=== PATIENT | male | born 1990 | race Hispanic/Latino ===

== ENCOUNTER 2025-06-18 13:55 | Inpatient (IN) | payer SELFPAY ==
[2025-06-18] MEDS ORDERED: levETIRAcetam 500 MG (5 mL) VIAL ONE (14:43)
[2025-06-18] MEDS ORDERED: hydrALAZINE 20 MG/ML VIAL SLOW IVP PRN (16:19)
[2025-06-18] MEDS ORDERED: Ondansetron PF 4 MG/2 ML Vial IVP PRN (16:44)
[2025-06-18 18:40] LABS: Magnesium 1.7 mg/dL (1.6-2.6)
[2025-06-18] MEDS: Acetaminophen 325 MG TAB PO SCH (19:37)
[2025-06-18] MEDS: Senokot 8.6 MG TAB PO SCH (19:38)
[2025-06-18 20:25] VITALS: BMI 31.1
[2025-06-18] MEDS: levETIRAcetam 500 MG (5 mL) VIAL SLOW IVP SCH (20:33)
[2025-06-18] MEDS: Famotidine/PF 20 mg/2ml Vial SLOW IVP SCH (20:33)
[2025-06-18] MEDS: TETANUS, DIPHTHERIA TOX,ADULT (TDVAX) 0.5 ML VIAL IM ONE (20:40)
[2025-06-19 03:39] LABS: #Basophils 0.03 10x3/uL (0.0-0.2); #Eosinophils 0.03 10x3/uL (0.0-0.7); #Monocytes 0.85 10x3/uL (0.11-0.59); #Neutrophils 7.96 10x3/uL (1.40-6.50); %Basophils 0.3 % (0.0-1.0); %Eosinophils 0.3 % (0.0-10.0); %Lymphocytes 14.3 % (21.0-51.0); %Monocytes 8.2 % (0.0-10.0); %Neutrophils 76.5 % (42.0-75.0); Hematocrit 41.5 % (42.0-52.0); Hemoglobin 13.3 g/dL (14.0-18.0); Mean Corpuscular Hemoglobin 27.1 pg (27.0-31.0); Mean Corpuscular Volume 84.5 fL (78.0-98.0); Platelet Count 212 10x3/uL (130-400); Red Blood Cell (RBC) Count 4.91 mill/uL (4.70-6.10); White Blood Cell (WBC) Count 10.40 10x3/uL (4.8-10.8)
[2025-06-19 03:54] LABS: ALT (SGPT) 29 U/L (Less than 45); AST (SGOT) 24 U/L (11-34); Albumin 3.5 g/dL (3.1-4.5); Alkaline Phosphatase 94 U/L (40-110); Anion Gap 14 mmol/L (10-20); BUN (Urea Nitrogen) 13 mg/dL (8.9-20.6); Bilirubin, Total 0.8 mg/dL (0.3-1.2); Calc. Creatinine Clearance 151 mL/min (70-130); Calcium 8.5 mg/dL (7.8-10.44); Carbon Dioxide 21 mmol/L (22-29); Chloride 109 mmol/L (98-107); Globulin 3.0 g/dL (2.4-3.5); Glucose 94 mg/dL (70-105); Potassium 3.7 mmol/L (3.5-5.1); Sodium 140 mmol/L (136-145)
[2025-06-19 04:11] LABS: INR-International Normal Ratio 1.1; Prothrombin Time 14.2 sec (12.0-14.7)
[2025-06-19 04:12] LABS: PTT 31.7 sec (22.9-36.1)
[2025-06-19] MEDS: Acetaminophen 325 MG TAB PO SCH (08:09)
[2025-06-19] MEDS: Magnesium 2 GM/50 ML(in water) 2 GM in Premix 1 BAG IVPB SCH (08:10)
[2025-06-19] MEDS: Methocarbamol 500 MG TAB PO SCH (09:19)
[2025-06-19] MEDS ORDERED: CEFAZOLIN 2 GM VIAL ONE (12:48)
[2025-06-19] MEDS ORDERED: PROPOFOL 200 MG/20 ML VIAL ONE (13:13)
[2025-06-19] MEDS ORDERED: Ketamine In 0.9 % NaCl 50 MG/5 ML SYRINGE ONE (13:24)
[2025-06-19] MEDS ORDERED: Ondansetron PF 4 MG/2 ML Vial ONE (13:26)
[2025-06-19] MEDS: oxyCODONE 5 MG TAB PO PRN (16:09)
[2025-06-19] MEDS: Mupirocin 1 GM TUBE NASAL DECOLONIZATION NASAL SCH (20:20)
[2025-06-20 05:34] LABS: #Basophils Less than 0.03 10x3/uL (0.0-0.2); #Eosinophils Less than 0.03 10x3/uL (0.0-0.7); #Monocytes 0.87 10x3/uL (0.11-0.59); #Neutrophils 10.18 10x3/uL (1.40-6.50); %Basophils 0.2 % (0.0-1.0); %Eosinophils 0.1 % (0.0-10.0); %Lymphocytes 10.9 % (21.0-51.0); %Monocytes 7.0 % (0.0-10.0); %Neutrophils 81.2 % (42.0-75.0); Hematocrit 42.0 % (42.0-52.0); Hemoglobin 13.6 g/dL (14.0-18.0); Mean Corpuscular Hemoglobin 27.3 pg (27.0-31.0); Mean Corpuscular Volume 84.2 fL (78.0-98.0); Platelet Count 224 10x3/uL (130-400); Red Blood Cell (RBC) Count 4.99 mill/uL (4.70-6.10); White Blood Cell (WBC) Count 12.51 10x3/uL (4.8-10.8)
[2025-06-20 05:52] LABS: ALT (SGPT) 21 U/L (Less than 45); AST (SGOT) 23 U/L (11-34); Albumin 3.5 g/dL (3.1-4.5); Alkaline Phosphatase 93 U/L (40-110); Anion Gap 13 mmol/L (10-20); BUN (Urea Nitrogen) 12 mg/dL (8.9-20.6); Bilirubin, Total 0.4 mg/dL (0.3-1.2); Calc. Creatinine Clearance 143 mL/min (70-130); Calcium 8.7 mg/dL (7.8-10.44); Carbon Dioxide 20 mmol/L (22-29); Chloride 108 mmol/L (98-107); Globulin 3.3 g/dL (2.4-3.5); Glucose 88 mg/dL (70-105); Potassium 4.0 mmol/L (3.5-5.1); Sodium 137 mmol/L (136-145)
[2025-06-20 10:58] VITALS: BP 137/87; TEMP 98
[2025-06-21] MEDS ORDERED: FLU (Fluarix Triv) 25-26 (6MOS UP)/PF 45 MCG/0.5 ML Syringe IM ONE (09:00)
== END 2025-06-20 15:24 | disposition home or self-care (01) | DRG 510 ==
LOC: ERS 13:55 → CCU 16:44 → SURG A 06-19 15:48
PROVIDERS: ADMIT Family Medicine; ATTEND Family Medicine
PROC: 0PSJ04Z Reposition Left Radius with Internal Fixation Device, Open Approach (ICD-10-PCS; principal; 2025-06-18)
DX: S52.592A Other fractures of lower end of left radius, initial encounter for closed fracture (principal); S06.6XAA Traumatic subarachnoid hemorrhage with loss of consciousness status unknown, initial encounter; S02.91XA Unspecified fracture of skull, initial encounter for closed fracture; K59.00 Constipation, unspecified; Z79.899 Other long term (current) drug therapy; R40.2362 Coma scale, best motor response, obeys commands, at arrival to emergency department; R40.2142 Coma scale, eyes open, spontaneous, at arrival to emergency department; R40.2252 Coma scale, best verbal response, oriented, at arrival to emergency department; S52.612A Displaced fracture of left ulna styloid process, initial encounter for closed fracture
CPT/HCPCS: 36415; 70450; 80053; 83735; 84100; 85025; 85610; 85730; 86850; 86900; 86901; 96365; 96375; C1713; G0390; J0169; J1100; J1308; J1953; J2270; J2405; J2704; J3010; J3475; J3490; J7030; Q9967